=== PATIENT | female | born 1940 | race Caucasian/White ===

== ENCOUNTER 2023-07-29 21:20 | Inpatient (IN) | payer MEDICARE, SELFPAY ==
[2023-07-29 21:42] VITALS: BP 153/73; PULSE 73; RESP 16
[2023-07-29 21:47] VITALS: BMI 33.7
--- NOTE | 2023-07-29 22:15 | NURSING ---
clarification requested from Dr. Hurst by phone regarding systane eye drop discharge order from [facility], per Dr. Hurst ok to give 1 drop TID PRN per pt. preference, [facility] discharge orders also states nebulizer unknown as needed, no c/o SOB or wheeze from patient, per Dr. Hurst discontinue nebulizer order , orders read back to Dr. Hurst
[2023-07-29] MEDS: Montelukast 10 MG Tablet PO (23:42)
[2023-07-29] MEDS: Senna/Docusate Sodium 1 Tablet 2 TABLET PO (23:42)
[2023-07-29] MEDS: Cefdinir 300 MG Capsule PO (23:42)
[2023-07-29] MEDS: APIXABAN 2.5 MG TABLET (WCH) PO (23:43)
[2023-07-29] MEDS: Fluticasone/Salmeterol 232-14 Inhaler 1 PUFF INHALATION (23:43)
[2023-07-30 06:09] LABS: Absolute Lymphocyte Count 0.89 X10^3/uL (0.83-4.51); Absolute Neutrophil Count 3.8 X10^3/uL (2.0-7.7); Basophil# 0.01 X10^3/uL; Basophil% 0.2 % (0-1); Eosinophil# 0.12 X10^3/uL; Hematocrit 32.6 % (37-47); Hemoglobin 10.6 g/dL (12.0-15.0); Lymphocyte # 0.89 X10^3/ul (0.83-4.51); Mean Corp Hgb Conc 32.5 g/dL (32-36); Mean Corpuscular Hgb 26.4 pg (27.0-32.0); Mean Corpuscular Volume 81.3 fL (81-99); Mean Platelet Vol. 8.7 fl (6.2-12.0); Monocyte# 1.03 X10^3/uL; Monocyte% 17.4 % (0-10); NRBC Flagged by Analyzer 0 % (0-5); Neutrophil # 3.78 X10^3/uL (2.7-7.7); Neutrophil % 63.7 % (47-70); Platelet Count 265 K/mm3 (150-450); RBC Distribution Width CV 13.7 % (11.6-14.6); RBC Distribution Width SD 40.5 fl (35.1-43.9); Red Blood Count 4.01 M/mm3 (4.2-5.4); White Blood Count 5.9 K/mm3 (4.4-11.0)
[2023-07-30] MEDS: Levothyroxine 50 MCG Tablet PO (06:25)
[2023-07-30 06:41] LABS: Anion Gap 9 (5-15); BUN 43 mg/dL (7-18); BUN/Creat Ratio 38.7 RATIO (10-20); Calcium,Total 9.4 mg/dL (8.5-10.1); Chloride 99 mmol/L (98-107); Creatinine, Serum 1.11 mg/dL (0.55-1.02); EST Glomerular Filtration Rate 50 mL/min (>60); Est Glom Filt Rate - Afr Amer 60 mL/min (>60); Estimated Creatinine Clearance 34.96 ml/min; Glucose 113 mg/dL (74-106); Potassium 4.7 mmol/L (3.5-5.1); Sodium Level 134 mmol/L (136-145)
--- NOTE | 2023-07-30 07:39 | PCM.HP.STD ---
HPI - General General Date of Admission: 07/29/23 Date of Service: 07/30/23 Chief Complaint: Here for rehabilitation. HPI Narrative DELANO TRACEY, is a 83 Female who presents with followin07/22/2023 Admit to [facility] from [facility]. Left hip fracture, consult Ortho, consult Trauma. Gentle hydration for AJ. 07/23/2023 Dr. Jimenez performed left hip FNS screw fixation. Rocephin IV x 3 days for E. Coli UTI. Creatinine peaked at 1.37, now normal. Right great toe gout treated with prednisone 40mg daily x 5 days. Hemoglobin 10.2, no transfusion necessary. 07/29/2023 Admit to TCU with debility, here for rehabilitation, strengthening, prior to discharge home alone. [facility] Medical History (Updated 07/30/23 @ 07:[address] Ghanshyam Hurst MD) Acute kidney injury Closed left hip fracture COPD (chronic obstructive pulmonary disease) CPAP (continuous positive airway pressure) dependence Debility Fall Former smoker GERD (gastroesophageal reflux disease) Gout History of cervical cancer Hyperlipidemia Hypertension Hypothyroidism Obstructive sleep apnea Urinary tract infection Allergy/AdvReac Type Severity Reaction Status Date / Time codeine Allergy Unknown Nausea/Vom/ Verified 07/29/23 22:46 Diarrhea Surgical History (Updated 07/30/23 @ 07:[address] Ghanshyam Hurst MD) History of appendectomy History of hysterectomy S/P ORIF (open reduction internal fixation) fracture Social History (Updated 07/30/23 @ 07:[address] Ghanshyam Hurst MD) household members: none Smoking Status: Former smoker alcohol intake: never substance use type: does not use ROS Constitutional Constitutional: Denies chills, fever(s) or weight gain ENT HEENT: Denies headache(s), nasal congestion or nasal discharge Cardiovascular Cardiovascular: Denies chest pain or palpitations Respiratory/Chest Respiratory/Chest: Denies cough, excessive phlegm production or shortness of breath with exertion Gastrointestinal Gastrointestinal: Denies abdominal pain, nausea or vomiting Genitourinary Genitourinary: Denies dysuria Musculoskeletal Musculoskeletal: Denies joint pain or joint swelling Integumentary Integumentary: Denies rash or wounds Neurologic Neurologic: Denies focal weakness, numbness or tingling Psychiatric Psychiatric: Denies anxiety, auditory hallucinations, depression, homicidal ideation or suicidal ideation Vital Signs Vital Signs Vital Signs: 07/29/23 21:42 07/29/23 21:57 Pulse Rate 73 Pulse Rhythm Regular Respiratory Rate 16 Respiratory Effort Normal Non-Labored Respiratory Depth Normal Respiratory Pattern Normal Blood Pressure 153/73 H Blood Pressure Mean 99 Blood Pressure Source Monitor Blood Pressure Position Semi-Fowlers Blood Pressure Location Left Arm Oxygen Delivery Method Nasal Cannula Weight Weight: 78.494 kg Body Mass Index (BMI) 33.7 Physical Exam Const alert General Appearance: cooperative HEENT normocephalic Eyes PERRL and EOMs intact bilaterally Neck supple, no JVD and no carotid bruits Resp normal respiratory effort, normal air movement and clear to auscultation bilaterally Cardio regular rate and regular rhythm GI normal to inspection, nondistended, normoactive bowel sounds, non-tender and non-distended Extremity normal capillary refill General Extremity: Negative for edema Skin no rashes or lesions noted General Skin Exam: no breakdown Psych affect normal Appearance: appropriate Results Lab / Micro Data 07/30/23 05:45 07/30/23 05:45 Labs: Laboratory Results - last 24 hr 07/30/23 05:45: WBC 5.9, RBC 4.01 L, Hgb 10.6 L, Hct 32.6 L, MCV 81.3, MCH 26.4 L, MCHC 32.5, RDW Std Deviation 40.5, RDW Coeff of Susan 13.7, Plt Count 265, MPV 8.7, Immature Gran % (Auto) 1.700 H, Neut % (Auto) 63.7, Lymph % (Auto) 15.0 L, Beauregard % (Auto) 17.4 H, Eos % (Auto) 2.0, Baso % (Auto) 0.2, Absolute Neuts (auto) 3.8, Absolute Lymphs (auto) 0.89, Nucleated RBC % 0, Sodium 134 L, Potassium 4.7, Chloride 99, Carbon Dioxide 26.0, Anion Gap 9, BUN 43 H, Creatinine 1.11 H, Estim Creat Clear Calc 34.96, Est GFR (MDRD) Af Amer 60, Est GFR (MDRD) Non-Af 50 L, BUN/Creatinine Ratio 38.7 H, Glucose 113 H, Calcium 9.4 Assessment & Plan Assessment/Plan (1) Debility: (2) Fall: (3) Closed left hip fracture: (4) Gout: (5) Urinary tract infection: (6) Acute kidney injury: (7) Hypertension: (8) GERD (gastroesophageal reflux disease): (9) Hypothyroidism: (10) Hyperlipidemia: (11) Obstructive sleep apnea: (12) History of cervical cancer: (13) COPD (chronic obstructive pulmonary disease): PLAN: Plan 83 year old female with below past medical history hospitalized for left hip fracture, underwent left hip FNS screw fixation 07/23/2023, postoperative course complicated by AJ, UTI, Gout, admitted to TCU with debility, here for rehabilitation, strengthening, prior to discharge home alone. Debility - PT/OT. Pain - Tylenol 1000mg q8, Oxycodone 5mg q4 prn pain (6-10). Bowel - Miralax 17gm daily, senna/colace 2 tablets bid, Dulcolax 10mg daily prn. Adult immunization - Administer pneumonia vaccine, covid vaccine, flu vaccine as appropriate. DVT prophylaxis - Eliquis 2.5mg bid thru 08/27/2023. Osteoporosis - Alendronate 70mg qweek. Hypertension - Metoprolol succinate 50mg daily, Lisinopril 20mg daily, Amlodipine 10mg daily. E. Coli UTI - Cefdinir 300mg q12 thru 08/02/2023. Vitamin D deficiency - D3 125mcg daily. COPD - Fluticasone/salmeterol 232-14 1 puff q12, Incruse 1 puff daily. Hypothyroidism - Levothyroxine 50mcg daily. Allergic rhinitis - Montelukast 10mg daily. Overactive bladder - Oxybutynin 5mg daily. GERD - Pantoprazole 40mg daily. Dry eyes - Artificial tears 1gtt tid prn. Hyperlipidemia - Pravastatin 20mg qhs.
[2023-07-30 08:57] VITALS: BP 136/72; PULSE 75
[2023-07-30] MEDS: Metoprolol(XL)Succ 50 MG Tablet PO (08:57)
[2023-07-30] MEDS: Pantoprazole Sodium 40 MG Tablet PO (08:58)
[2023-07-30] MEDS: Senna/Docusate Sodium 1 Tablet 2 TABLET PO ×2 (08:58→22:03)
[2023-07-30] MEDS: Oxybutynin 5 MG Tablet PO (08:58)
[2023-07-30] MEDS: amLODIPine 10 MG Tablet PO (08:58)
[2023-07-30] MEDS: Cholecalciferol (Vit D3) 125 MCG CAPSULE (5,000 UNITS) PO (08:58)
[2023-07-30] MEDS: Cefdinir 300 MG Capsule PO ×2 (08:58→22:04)
[2023-07-30] MEDS: Lisinopril 20 MG Tablet PO (08:58)
[2023-07-30] MEDS: Umeclidinium Bromide Inhaler 1 PUFF INHALATION (08:59)
[2023-07-30] MEDS: APIXABAN 2.5 MG TABLET (WCH) PO ×2 (08:59→22:03)
[2023-07-30] MEDS: Fluticasone/Salmeterol 232-14 Inhaler 1 PUFF INHALATION ×2 (08:59→22:03)
[2023-07-30] MEDS: oxyCODONE 5 MG Tablet PO (09:03)
[2023-07-30] MEDS: Tuberculin,Purif.prot.deriv. 50 TU/ML Vial 0.1 ML ID (09:35)
--- NOTE | 2023-07-30 13:43 | PCM.PN.DRR ---
Documented by User: Rui Mcdonough 07/30/23 14:10 TCU RX Drug Regimen Review Subjective/Objective Subjective/Objective: Subjective: TCU admission note. 83 year old female with below past medical history hospitalized for left hip fracture, underwent left hip FNS screw fixation 07/23/2023, postoperative course complicated by AJ, UTI, Gout, admitted to TCU with debility, here for rehabilitation, strengthening, prior to discharge home alone. Objective: Allergies codeine Allergy (Unknown, Verified 07/29/23 22:46) Nausea/Vom/Diarrhea Current Medications Generic Name Dose Route Start Last Admin Trade Name Freq PRN Reason Stop Dose Admin Acetaminophen 1,000 mg 07/30/23 14:00 Acetaminophen 500 Mg Tablet PO Q8 TONI Alendronate Sodium 70 mg 08/04/23 07:00 Alendronate Sodium 70 Mg Tablet PO Q7D@0700 TONI Amlodipine Besylate 10 mg 07/30/23 10:00 07/30/23 08:58 Amlodipine 10 Mg Tablet PO 10 mg DAILY TONI Administration Protocol Apixaban 2.5 mg 07/29/23 22:00 07/30/23 08:59 Apixaban 2.5 Mg Tablet ([facility]) PO 08/27/23 23:59 2.5 mg BID TONI Administration Bisacodyl 10 mg 07/29/23 21:33 Bisacodyl 5 Mg Tablet PO DAILY PRN PRN Constipation Cefdinir 300 mg 07/29/23 22:00 07/30/23 08:58 Cefdinir 300 Mg Capsule PO 08/02/23 22:01 300 mg Q12 TONI Administration Cholecalciferol 125 mcg 07/30/23 10:00 07/30/23 08:58 Cholecalciferol (Vit D3) 125 Mcg Capsule (5,000 Units) PO 125 mcg DAILY TONI Administration Glycerin/Hypromellose/Polyethylene 1 drp 07/29/23 23:24 Glycerin/Hypromellose/[id number] 15 Ml Bottle EACH EYE TID PRN PRN eye dryness Sodium Chloride 250 mls @ 15 mls/hr 07/29/23 21:30 IV .[id number] PRN Additional IVPB Infusion Sodium Chloride 250 mls @ 15 mls/hr 07/29/23 21:30 IV .[id number] PRN Saline Flush Levothyroxine Sodium 50 mcg 07/30/23 06:00 07/30/23 06:25 Levothyroxine 50 Mcg Tablet PO 50 mcg DAILY@0600 TONI Administration Lisinopril 20 mg 07/30/23 10:00 07/30/23 08:58 Lisinopril 20 Mg Tablet PO 20 mg DAILY TONI Administration Metoprolol Succinate 50 mg 07/30/23 10:00 07/30/23 08:57 Metoprolol(Xl)Succ 50 Mg Tablet PO 50 mg DAILY TONI Administration Protocol Montelukast Sodium 10 mg 07/29/23 22:00 07/29/23 23:42 Montelukast 10 Mg Tablet PO 10 mg HS TONI Administration Nutritional Formula (Lactose Free) 120 ml 07/30/23 17:45 Ensure Plus High Protein 120 Ml Liquid PO TIDCM [facility] Oxybutynin Chloride 5 mg 07/30/23 10:00 07/30/23 08:58 Oxybutynin 5 Mg Tablet PO 5 mg DAILY TONI Administration Oxycodone HCl 5 mg 07/30/23 07:51 07/30/23 09:03 Oxycodone 5 Mg Tablet PO 08/01/23 21:47 5 mg Q4H PRN PRN Administration Pain Score 6-10 Pantoprazole Sodium 40 mg 07/30/23 10:00 07/30/23 08:58 Pantoprazole Sodium 40 Mg Tablet PO 40 mg DAILY TONI Administration Polyethylene Glycol 17 gm 07/30/23 10:00 07/30/23 08:59 Polyethylene Glycol 3350 17 Gm Packet PO 08/14/23 10:01 Not Given DAILY [facility] Pravastatin Sodium 20 mg 07/30/23 22:00 Pravastatin 20 Mg Tablet PO QHS TONI Fluticasone/Salmeterol 1 puff 07/29/23 22:00 07/30/23 08:59 Fluticasone/Salmeterol 232-14 Inhaler INHALATION 1 puff Q12 TONI Administration Senna/Docusate Sodium 2 tablet 07/29/23 22:00 07/30/23 08:58 Senna/Docusate Sodium 1 Tablet PO 2 tablet BID TONI Administration Sodium Chloride 10 - 40 ml 07/29/23 21:30 0.9% Saline Lock 10 Ml Syringe IV UD PRN SALINE FLUSH Tuberculin PPD 0.1 ml 08/06/23 10:00 Tuberculin,Purif.Prot.Deriv. 50 Tu/Ml Vial ID 08/06/23 10:01 X1 ONE Umeclidinium [place] 1 puff 07/30/23 10:00 07/30/23 08:59 Umeclidinium [place] Inhaler INHALATION 1 puff DAILY TONI Administration Problem List (Updated 07/30/23 @ 07:[address] Ghanshyam Hurst MD) COPD (chronic obstructive pulmonary disease) (Chronic) History of cervical cancer (Acute) Obstructive sleep apnea (Acute) Hyperlipidemia (Acute) Hypothyroidism (Acute) GERD (gastroesophageal reflux disease) (Acute) Hypertension (Chronic) Acute kidney injury (Acute) Urinary tract infection (Acute) Gout (Acute) Closed left hip fracture (Acute) Fall (Acute) Debility (Acute) Vital Signs Pulse Resp BP O2 Del Method O2 Flow Rate 75 16 136/72 H Nasal Cannula 2 07/30/23 08:57 07/29/23 21:42 07/30/23 08:57 07/29/23 21:57 07/30/23 10:39 Oxygen Flow Rate (L/min) 2 Oxygen Delivery Method Nasal Cannula Weight: 78.494 kg Body Mass Index (BMI) 33.7 Sodium 134 mmol/L (136-145) L 07/30/23 05:45 Potassium 4.7 mmol/L (3.5-5.1) 07/30/23 05:45 Chloride 99 mmol/L (98-107) 07/30/23 05:45 Carbon Dioxide 26.0 mmol/L (21.0-32.0) 07/30/23 05:45 Anion Gap 9 (5-15) 07/30/23 05:45 BUN 43 mg/dL (7-18) H 07/30/23 05:45 Creatinine 1.11 mg/dL (0.55-1.02) H 07/30/23 05:45 Est GFR (MDRD) Af Amer 60 mL/min (>60) 07/30/23 05:45 Est GFR (MDRD) Non-Af 50 mL/min (>60) L 07/30/23 05:45 BUN/Creatinine Ratio 38.7 RATIO (10-20) H 07/30/23 05:45 Glucose 113 mg/dL (74-106) H 07/30/23 05:45 Assessment/Plan: 1. Pain: acetaminophen 1000 mg PO Q8H, oxycodone 5 mg PO Q4H PRN pain (6-10). The patient has required 1 dose of PRN oxycodone so far this admission. Please continue to monitor pain levels, LFTs (no recent LFTs documented), for respiratory depression, constipation, dizziness/drowsiness and syncope/ataxia/falls. 2. Bowel: Polyethylene glycol 17 grams PO daily, senna/docusate 2 tablets PO BID, bisacodyl 10 mg PO daily PRN constipation. The patient has not required any PRN doses of bisacodyl so far this admission and the patient does not have a documented bowel movement yet this admission. Please continue to monitor for PRN medication usage, bowel movements, constipation and diarrhea. 3. DVT prophylaxis: apixaban 2.5 mg PO BID through 08/27/23. Please continue to monitor for s/s of DVT such as pain/erythema/edema in an extremity, for s/s of bleeding/excessive bruising, hemoglobin levels (Hgb = 10.6 g/dL on 07/30/23), and platelet count (Plt = 265 K/mm3 on 07/30/23). 4. UTI: cefdinir 300 mg PO BID through 08/02/23. Please continue to monitor for s/s of UTI such as dysuria, urgency, frequency, fevers (no recent temps documented), white blood cell count (WBC = 5.9 K/mm3 on 07/30/23), renal function (serum creatinine = 1.11 mg/dL with creatinine clearance ~ 35 mL/min on 07/30/23), and for GI distress and diarrhea. 5. Hypertension: amlodipine 10 mg PO daily, lisinopril 20 mg PO daily, metoprolol succinate 50 mg PO daily. Please continue to monitor blood pressures (recent range = 136-153/72-73 mmHg), for lower extremity edema, potassium levels (K = 4.7 mmol/L on 07/30/23), sodium levels (Na = 134 mmol/L on 07/30/23), renal function (serum creatinine = 1.11 mg/dL with creatinine clearance ~ 35 mL/min on 07/30/23), heart rates (recent range = 73-75 beats/min), for angioedema, cough, and fatigue. The patient's blood pressures have been elevated so far this admission, please consider increasing lisinopril to 30 mg PO daily if patient's blood pressures remain elevated. 6. Osteoporosis: alendronate 70 mg PO every week. Please continue to monitor for s/s of osteoporosis such as fractures, calcium levels (Ca = 9.4 mg/dL on 07/30/23), for jaw pain, and for GI distress with alendronate administration. 7. COPD: fluticasone/salmeterol 232-14 1 puff BID, umeclidinium 1 puff daily. Please continue to monitor for s/s of COPD exacerbation such as cough and increased sputum production, for shortness of breath, for oral thrush, palpitations, dry mouth, dry eyes, urinary retention and constipation. Please ensure the patient's mouth is rinsed with water after each administration of fluticasone/salmeterol to help avoid oral thrush. 8. Hypothyroidism: levothyroxine 50 mcg PO daily. Please continue to monitor for s/s of hypo/hyperthyroidism, and for thyroid hormone levels (no recent thyroid hormone levels documented). Please consider ordering thyroid hormone levels to assess patient's thyroid repletion status if clinically indicated. 9. GERD: pantoprazole 40 mg PO daily. Please continue to monitor for s/s of GERD, for diarrhea that could indicate clostridium difficile infection, and for s/s of bone resorption issues such as fractures. As the patient has a diagnosis of osteoporosis, it may be reasonable to assess the patient's history of GERD, and attempt to de-escalate GERD treatment to either a PRN H2RA such as famotidine/tums or to stop treatment entirely and assess for necessity of pantoprazole depending on patient's previous history and trials with other medications. 10: Hyperlipidemia: pravastatin 20 mg PO QHS. Please continue to monitor lipid levels (no recent lipid levels documented), and for myalgias. Please consider ordering lipid levels to assess patient's lipid status if clinically indicated. 11. Overactive bladder: oxybutynin 5 mg PO daily. Please continue to monitor for bladder spasms, drowsiness, blurred vision, constipation, delirium, dry mouth and dry eyes. 12. Allergic rhinitis: montelukast 10 mg PO daily. Please continue to monitor allergy symptoms, and for agitation. 13. Vitamin D deficiency: cholecalciferol 125 mcg PO daily. Please continue to monitor for s/s of vitamin D deficiency as well as vitamin D levels (no recent vitamin D levels documented). Please consider ordering vitamin D levels to assess vitamin D deficiency if clinically indicated. 14. Dry eyes: artificial tears 1 drop in each eye TID PRN dry eyes. The patient has not required any PRN artificial tears so far this admission. Please continue to monitor for dry eyes and PRN medication usage. Assessment/Plan for indications treated with psychotropic medications: NA Medical chart and medication regimen reviewed. The following medication irregularities or issues were identified: 1. Hypertension: amlodipine 10 mg PO daily, lisinopril 20 mg PO daily, metoprolol succinate 50 mg PO daily. The patient's blood pressures have been elevated so far this admission, please consider increasing lisinopril to 30 mg PO daily if patient's blood pressures remain elevated. 2. Hypothyroidism: levothyroxine 50 mcg PO daily. Please consider ordering thyroid hormone levels to assess patient's thyroid repletion status if clinically indicated. 3. GERD: pantoprazole 40 mg PO daily. As the patient has a diagnosis of osteoporosis which pantoprazole may contribute to the worsening of, it may be reasonable to assess the patient's history of GERD, and attempt to de-escalate GERD treatment to either a PRN H2RA such as famotidine/tums or to stop treatment entirely and assess for necessity of pantoprazole depending on patient's previous history and trials with other medications. 4: Hyperlipidemia: pravastatin 20 mg PO QHS. Please consider ordering lipid levels to assess patient's lipid status if clinically indicated. 5. Vitamin D deficiency: cholecalciferol 125 mcg PO daily. Please consider ordering vitamin D levels to assess vitamin D deficiency if clinically indicated. Date Date of Note:: 07/30/23 Documented by User: Dr. Ghanshyam Hurst MD 07/30/23 14:36 TCU RX Drug Regimen Review Provider Comments Provider responsibility Provider Comments to Recommendations by Pharmacy: Agree
--- NOTE | 2023-07-30 13:46 | NURSING ---
Block Stacker Note; Activity Asset: Sheldon Bales is independent in her choice of daily activities with reminders at this time. She is oriented x3 just give her time go get out what she would like to say. She watches tv, reads and visits with the therapist respiratory and therapy dog when available. Staff will remind her of weekly activities and respect her right to say no.
--- NOTE | 2023-07-30 14:21 | CASEMGMT ---
Addendum entered by Brittany Ellis 07/30/23 14:49: Social Work Pt's C-Pap is from [employer]. Pt is not usually on O2 and is on O2 at this time. BARBRA Gleason Original Note: Social Work SW met w/pt and daughter Margarita in room, introduced self and role of SW in TCU. SW asked about LW/POA, daughter Mckenzie is healthcare POA and will bring in the documents. SW confirmed w/pt is a full code. SW explained pt is approved for TCU with insurance, next review date is 08/02/23, and there is no guarantee they will cover additional time. SW also educated daughter and pt to plan of care meeting next week, they will be contacted regarding the time. Daughter asked exactly when the meeting will be, SW left a message for Cassandra to let pt and family know. Pt's discharge plan is to return home, she is open to home health and other home delivery options besides Meals on Wheels. Pt does take a long time to get her words out, as per pt and daughter this started happening a year ago and they do not know why. She is to follow up w/a neurologist, the appt is for next week. SW will continue to follow for d/c planning needs. BARBRA Gleason
[2023-07-30] MEDS: Acetaminophen 500 MG Tablet 1000 MG PO ×2 (14:35→22:03)
--- NOTE | 2023-07-30 14:55 | CHAPLAIN ---
Type of Pastoral Visit _x__ Initial Visit ___ Follow-up Visit ___ On-call Visit ___ General Patient Visit ___ Spiritual Assessment ___ Family Conference ___ Bereavement ___ Rapid Response ___ Code Blue ___ Other (describe below) Pastoral Care Referral From _x__ Patient ___ Family ___ Nurse ___ Physician ___ Director Investment Banking ___ Die Repairer Trimmer Dies ___ Other (describe below) Sacrament/Intervention _x__ Active listening ___ Anointing ___ Yarsani ___ Bereavement ___ Communion ___ Tita exploration ___ _x__ Life review _x__ Prayer ___ Reconciliation ___ Sacrament of Sick ___ Supportive presence ___ Wedding ___ Other (describe below) Pastoral Comments patient and her daughter are in the room; daughter is visiting and is also welcoming; pt gives some answers to the questions given but is quite slow in getting words out; daughter fills in the details and gives explanations; pt states that she is connected to a bahai and expects the exhibit display representative to visit also; pt is welcoming and invites a prayer for her support;
[2023-07-30 15:25] VITALS: BP 134/62; PULSE 75; RESP 16; TEMP 36.2; O2SAT 96
[2023-07-30] MEDS: Ensure Plus High Protein 120 ML LIQUID PO (18:01)
[2023-07-30] MEDS: Pravastatin 20 MG Tablet PO (22:04)
[2023-07-30] MEDS: Montelukast 10 MG Tablet PO (22:04)
[2023-07-30 23:00] VITALS: PULSE 64; RESP 16; O2SAT 95
[2023-07-31] MEDS: Levothyroxine 50 MCG Tablet PO (06:28)
[2023-07-31] MEDS: Acetaminophen 500 MG Tablet 1000 MG PO ×3 (06:28→22:51)
[2023-07-31 08:59] LABS: Vitamin D,25 Hydroxy 36.5 ng/mL
[2023-07-31 09:02] LABS: Cholesterol 137 mg/dL (200); High Density Lipoprotein 46 mg/dL; Triglycerides 134 mg/dL; Very Low Density Lipoprotein 27 mg/dL (5-40)
[2023-07-31 09:03] VITALS: BP 129/49; PULSE 85
[2023-07-31] MEDS: Cefdinir 300 MG Capsule PO ×2 (09:03→22:52)
[2023-07-31] MEDS: Pantoprazole Sodium 40 MG Tablet PO (09:03)
[2023-07-31] MEDS: Oxybutynin 5 MG Tablet PO (09:03)
[2023-07-31] MEDS: Senna/Docusate Sodium 1 Tablet 2 TABLET PO (09:03)
[2023-07-31] MEDS: Lisinopril 20 MG Tablet PO (09:03)
[2023-07-31] MEDS: Umeclidinium Bromide Inhaler 1 PUFF INHALATION (09:03)
[2023-07-31] MEDS: Metoprolol(XL)Succ 50 MG Tablet PO (09:03)
[2023-07-31] MEDS: APIXABAN 2.5 MG TABLET (WCH) PO ×2 (09:03→22:52)
[2023-07-31] MEDS: Cholecalciferol (Vit D3) 125 MCG CAPSULE (5,000 UNITS) PO (09:03)
[2023-07-31] MEDS: Fluticasone/Salmeterol 232-14 Inhaler 1 PUFF INHALATION ×2 (09:03→22:53)
[2023-07-31] MEDS: amLODIPine 10 MG Tablet PO (09:03)
[2023-07-31] MEDS: Ensure Plus High Protein 120 ML LIQUID PO ×2 (09:05→17:38)
[2023-07-31 15:38] VITALS: BP 105/45; PULSE 74; RESP 16; TEMP 36.1; O2SAT 96
[2023-07-31] MEDS: Pravastatin 20 MG Tablet PO (22:52)
[2023-07-31] MEDS: Montelukast 10 MG Tablet PO (22:53)
[2023-08-01 04:31] VITALS: O2SAT 96
[2023-08-01] MEDS: Levothyroxine 50 MCG Tablet PO (04:59)
[2023-08-01] MEDS: oxyCODONE 5 MG Tablet PO ×2 (04:59→23:16)
[2023-08-01] MEDS: Acetaminophen 500 MG Tablet 1000 MG PO ×3 (04:59→22:20)
[2023-08-01] MEDS: Umeclidinium Bromide Inhaler 1 PUFF INHALATION (10:25)
[2023-08-01] MEDS: Ensure Plus High Protein 120 ML LIQUID PO ×3 (10:25→17:11)
[2023-08-01] MEDS: Fluticasone/Salmeterol 232-14 Inhaler 1 PUFF INHALATION ×2 (10:25→22:19)
[2023-08-01 10:27] VITALS: BP 126/68; PULSE 76
[2023-08-01] MEDS: Pantoprazole Sodium 40 MG Tablet PO (10:27)
[2023-08-01] MEDS: Metoprolol(XL)Succ 50 MG Tablet PO (10:27)
[2023-08-01] MEDS: Lisinopril 20 MG Tablet PO (10:27)
[2023-08-01] MEDS: Cholecalciferol (Vit D3) 125 MCG CAPSULE (5,000 UNITS) PO (10:27)
[2023-08-01] MEDS: Cefdinir 300 MG Capsule PO ×2 (10:28→22:16)
[2023-08-01] MEDS: Senna/Docusate Sodium 1 Tablet 2 TABLET PO ×2 (10:28→22:16)
[2023-08-01] MEDS: APIXABAN 2.5 MG TABLET (WCH) PO ×2 (10:28→22:15)
[2023-08-01] MEDS: amLODIPine 10 MG Tablet PO (10:28)
[2023-08-01] MEDS: Oxybutynin 5 MG Tablet PO (10:29)
[2023-08-01 11:22] VITALS: O2SAT 96
[2023-08-01 15:48] VITALS: BP 108/47; PULSE 77; RESP 16; TEMP 36.4; O2SAT 98
[2023-08-01] MEDS: Montelukast 10 MG Tablet PO (22:19)
[2023-08-01] MEDS: Pravastatin 20 MG Tablet PO (22:19)
[2023-08-02] MEDS: oxyCODONE 5 MG Tablet PO (03:21)
[2023-08-02] MEDS: Acetaminophen 500 MG Tablet 1000 MG PO ×3 (06:38→20:31)
[2023-08-02] MEDS: Levothyroxine 50 MCG Tablet PO (06:38)
[2023-08-02 07:02] VITALS: O2SAT 97
[2023-08-02] MEDS: Oxybutynin 5 MG Tablet PO (09:37)
[2023-08-02] MEDS: Fluticasone/Salmeterol 232-14 Inhaler 1 PUFF INHALATION ×2 (09:38→20:30)
[2023-08-02] MEDS: amLODIPine 10 MG Tablet PO (09:38)
[2023-08-02 09:39] VITALS: BP 120/58; PULSE 92
[2023-08-02] MEDS: Metoprolol(XL)Succ 50 MG Tablet PO (09:39)
[2023-08-02] MEDS: Cefdinir 300 MG Capsule PO ×2 (09:39→20:32)
[2023-08-02] MEDS: Pantoprazole Sodium 40 MG Tablet PO (09:39)
[2023-08-02] MEDS: Senna/Docusate Sodium 1 Tablet 2 TABLET PO ×2 (09:39→20:31)
[2023-08-02] MEDS: Cholecalciferol (Vit D3) 125 MCG CAPSULE (5,000 UNITS) PO (09:40)
[2023-08-02] MEDS: Umeclidinium Bromide Inhaler 1 PUFF INHALATION (09:40)
[2023-08-02] MEDS: Lisinopril 20 MG Tablet PO (09:40)
[2023-08-02] MEDS: Ensure Plus High Protein 120 ML LIQUID PO ×3 (09:58→17:20)
[2023-08-02] MEDS: APIXABAN 2.5 MG TABLET (WCH) PO ×2 (11:06→20:31)
--- NOTE | 2023-08-02 11:52 | NURSING ---
Addendum entered by Karis Alejo 08/02/23 17:24: Dr. Jimenez office call back and say patient will need to follow up 6 weeks post op. Patient made aware. Original Note: Spoke with nurse An at Dr. López office and she gives order to remove matthew on 08/09/23 and that dressing to left hip will also come off at this time. Patient to receive x-ray to left hip same day as staple removal and images pushed through to teleimaging. [facility] x-ray confirm images will be able to be pushed through. Daughter to be made aware of orders.
--- NOTE | 2023-08-02 13:12 | NURSING ---
Offered Covid vaccine, VIS provided. Patient refused at this time.
--- NOTE | 2023-08-02 13:56 | NURSING ---
SPO2 98% ON 1L per NC this AM at 0900. Removed o2 and spo2 96% after a few minutes. Patient walked to bathroom one hour later and o2 remained at 98% on RA. Oxygen remains off at this time.
[2023-08-02 14:55] VITALS: BP 120/50; PULSE 78; RESP 18; TEMP 36.3; O2SAT 96
[2023-08-02 20:25] VITALS: RESP 17; O2SAT 96
[2023-08-02] MEDS: Pravastatin 20 MG Tablet PO (20:31)
[2023-08-02] MEDS: Montelukast 10 MG Tablet PO (20:31)
[2023-08-03] MEDS: oxyCODONE 5 MG Tablet PO ×3 (02:15→21:30)
[2023-08-03] MEDS: Levothyroxine 50 MCG Tablet PO (05:32)
[2023-08-03] MEDS: Acetaminophen 500 MG Tablet 1000 MG PO ×3 (05:32→21:31)
[2023-08-03 07:46] VITALS: O2SAT 95
[2023-08-03 09:06] VITALS: BP 122/54; PULSE 84; RESP 16; TEMP 36.3; O2SAT 95
--- NOTE | 2023-08-03 10:02 | NURSING ---
He[facility]ly for Dr Andre Pena, to clarify removal of matthew and if he would like an X-ray completed. Waiting for return call.
[2023-08-03] MEDS: Ensure Plus High Protein 120 ML LIQUID PO ×3 (10:16→17:16)
[2023-08-03] MEDS: Oxybutynin 5 MG Tablet PO (10:17)
[2023-08-03] MEDS: APIXABAN 2.5 MG TABLET (WCH) PO ×2 (10:17→21:31)
[2023-08-03] MEDS: Fluticasone/Salmeterol 232-14 Inhaler 1 PUFF INHALATION ×2 (10:18→21:30)
[2023-08-03] MEDS: Umeclidinium Bromide Inhaler 1 PUFF INHALATION (10:19)
[2023-08-03] MEDS: Pantoprazole Sodium 40 MG Tablet PO (10:21)
[2023-08-03] MEDS: amLODIPine 10 MG Tablet PO (10:21)
[2023-08-03 10:22] VITALS: BP 122/54; PULSE 84
[2023-08-03] MEDS: Senna/Docusate Sodium 1 Tablet 2 TABLET PO ×2 (10:22→21:32)
[2023-08-03] MEDS: Metoprolol(XL)Succ 50 MG Tablet PO (10:22)
[2023-08-03] MEDS: Cholecalciferol (Vit D3) 125 MCG CAPSULE (5,000 UNITS) PO (10:23)
[2023-08-03] MEDS: Lisinopril 20 MG Tablet PO (10:23)
[2023-08-03 15:26] VITALS: BMI 33.8
[2023-08-03] MEDS: Pravastatin 20 MG Tablet PO (21:32)
[2023-08-03] MEDS: Montelukast 10 MG Tablet PO (21:32)
[2023-08-04] MEDS: Alendronate Sodium 70 MG Tablet PO (06:10)
[2023-08-04] MEDS: oxyCODONE 5 MG Tablet PO ×2 (06:10→20:56)
[2023-08-04] MEDS: Levothyroxine 50 MCG Tablet PO (06:11)
[2023-08-04] MEDS: Acetaminophen 500 MG Tablet 1000 MG PO ×3 (06:11→20:58)
[2023-08-04 08:55] VITALS: O2SAT 94
[2023-08-04] MEDS: Ensure Plus High Protein 120 ML LIQUID PO ×3 (09:08→17:44)
[2023-08-04] MEDS: APIXABAN 2.5 MG TABLET (WCH) PO ×2 (09:09→20:58)
[2023-08-04] MEDS: Oxybutynin 5 MG Tablet PO (09:09)
[2023-08-04] MEDS: Umeclidinium Bromide Inhaler 1 PUFF INHALATION (09:10)
[2023-08-04] MEDS: Fluticasone/Salmeterol 232-14 Inhaler 1 PUFF INHALATION ×2 (09:10→20:58)
[2023-08-04] MEDS: amLODIPine 10 MG Tablet PO (09:11)
[2023-08-04 09:12] VITALS: BP 139/62; PULSE 80
[2023-08-04] MEDS: Metoprolol(XL)Succ 50 MG Tablet PO (09:12)
[2023-08-04] MEDS: Senna/Docusate Sodium 1 Tablet 2 TABLET PO ×2 (09:12→20:59)
[2023-08-04] MEDS: Pantoprazole Sodium 40 MG Tablet PO (09:12)
[2023-08-04] MEDS: Lisinopril 20 MG Tablet PO (09:13)
[2023-08-04] MEDS: Cholecalciferol (Vit D3) 125 MCG CAPSULE (5,000 UNITS) PO (09:13)
[2023-08-04 09:26] VITALS: BP 139/62; PULSE 80; RESP 16; TEMP 36.3; O2SAT 95
--- NOTE | 2023-08-04 12:15 | CASEMGMT ---
Social Work Collaboration with DIGITAL PHOTOGRAPHER on presenting social work information for care plan meeting. Information included explanation of [employer] insurance with NRD 08/09, EDC 08/12, continued stay is not guaranteed with each review. Broached topic of pt needing alternative DC plan, specifically at a SNF. Explained patient liability at a SNF. Family reported pt will need Medicaid to transfer to a SNF. This worker's business card provided to pt/family if further questions arise. SW will follow up with DC plans. JOHN PAUL MotaW
--- NOTE | 2023-08-04 15:55 | CHAPLAIN ---
Type of Pastoral Visit ___ Initial Visit _x__ Follow-up Visit ___ On-call Visit ___ General Patient Visit ___ Spiritual Assessment ___ Family Conference ___ Bereavement ___ Rapid Response ___ Code Blue ___ Other (describe below) Pastoral Care Referral From _x__ Patient ___ Family ___ Nurse ___ Physician ___ Defence [employer] Member Other Ranks ___ Freight Brakeman ___ Other (describe below) Sacrament/Intervention _x__ Active listening ___ Anointing ___ Sabianist ___ Bereavement ___ Communion _x__ Tita exploration ___ _x__ Life review _x__ Prayer ___ Reconciliation ___ Sacrament of Sick ___ Supportive presence ___ Wedding ___ Other (describe below) Pastoral Comments follow up visit today after a brief initial visit last week; pt is alone and able to talk directly about her life and situation; pt presents with a smile and positive outlook; pt speaks of having all she needs because she has five daughters that are very attentive; patient has family support from others too; pt speaks of her tita and 'finding it again' through a granddaughter; pt shares of her tita perspective; pt gives some life review; pt states she does not worry about anything; prayer is welcomed
[2023-08-04] MEDS: Montelukast 10 MG Tablet PO (20:58)
[2023-08-04] MEDS: Pravastatin 20 MG Tablet PO (20:59)
[2023-08-04 23:00] VITALS: PULSE 83; RESP 16; O2SAT 93
[2023-08-05] MEDS: Acetaminophen 500 MG Tablet 1000 MG PO ×3 (05:24→22:46)
[2023-08-05] MEDS: Levothyroxine 50 MCG Tablet PO (05:24)
[2023-08-05 08:12] VITALS: O2SAT 93
--- NOTE | 2023-08-05 08:37 | NURSING ---
Air Bag Buffer Note; MDS for 08/05/2023 Complete
[2023-08-05 08:52] VITALS: BP 129/43; PULSE 81; RESP 18; O2SAT 98
[2023-08-05] MEDS: amLODIPine 10 MG Tablet PO (08:54)
[2023-08-05] MEDS: Ensure Plus High Protein 120 ML LIQUID PO ×2 (08:54→18:11)
[2023-08-05] MEDS: Lisinopril 20 MG Tablet PO (08:54)
[2023-08-05] MEDS: APIXABAN 2.5 MG TABLET (WCH) PO ×2 (08:54→22:45)
[2023-08-05] MEDS: Oxybutynin 5 MG Tablet PO (08:54)
[2023-08-05] MEDS: Senna/Docusate Sodium 1 Tablet 2 TABLET PO ×2 (08:54→22:46)
[2023-08-05 08:55] VITALS: PULSE 81
[2023-08-05] MEDS: Fluticasone/Salmeterol 232-14 Inhaler 1 PUFF INHALATION ×2 (08:55→22:46)
[2023-08-05] MEDS: Pantoprazole Sodium 40 MG Tablet PO (08:55)
[2023-08-05] MEDS: Cholecalciferol (Vit D3) 125 MCG CAPSULE (5,000 UNITS) PO (08:55)
[2023-08-05] MEDS: Umeclidinium Bromide Inhaler 1 PUFF INHALATION (08:55)
[2023-08-05] MEDS: Metoprolol(XL)Succ 50 MG Tablet PO (08:55)
[2023-08-05] MEDS: oxyCODONE 5 MG Tablet PO ×2 (09:06→22:45)
--- NOTE | 2023-08-05 11:20 | CASEMGMT ---
Social Work BIMS () and PHQ-2 () completed for MDS assessment. Angela Chan MSW REGISTERED CLIENT ASSOCIATE
--- NOTE | 2023-08-05 11:45 | NURSING ---
Addendum entered by Mihaela Huber 08/05/23 15:46: Pt returns to unit ~1500 with daughter after appointment with Phi Betancur MD. New orders received for carbidopa-levidopa 25-100mg tablets daily. 6wk follow-up appointment with ELAINA Orellana scheduled for 09/16/23 @1430. Pt and family aware of new orders; no comments/concerns at this time. RN notified. Will update Dr. Hurst on new orders. Original Note: Pt leaves unit ~1140 for appointment in [place] with [facility] neurologist. Denies pain. Daughter transporting.
[2023-08-05 16:00] VITALS: TEMP 36.1
[2023-08-05 22:45] VITALS: PULSE 88; RESP 18; O2SAT 96
[2023-08-05] MEDS: Montelukast 10 MG Tablet PO (22:46)
[2023-08-05] MEDS: Pravastatin 20 MG Tablet PO (22:46)
[2023-08-06] MEDS: oxyCODONE 5 MG Tablet PO ×2 (05:19→23:08)
[2023-08-06] MEDS: Levothyroxine 50 MCG Tablet PO (05:19)
[2023-08-06] MEDS: Acetaminophen 500 MG Tablet 1000 MG PO ×3 (05:19→22:31)
[2023-08-06 05:20] VITALS: PULSE 78; RESP 16; O2SAT 95
[2023-08-06 05:36] LABS: Absolute Neutrophil Count 2.3 X10^3/uL (2.0-7.7); Basophil# 0.04 X10^3/uL; Basophil% 1.1 % (0-1); Eosinophil# 0.09 X10^3/uL; Eosinophils% 2.5 % (0-5); Hematocrit 30.4 % (37-47); Mean Corp Hgb Conc 32.9 g/dL (32-36); Mean Corpuscular Hgb 26.9 pg (27.0-32.0); Mean Corpuscular Volume 81.7 fL (81-99); Mean Platelet Vol. 9.3 fl (6.2-12.0); Monocyte% 16.8 % (0-10); NRBC Flagged by Analyzer 0 % (0-5); Neutrophil # 2.33 X10^3/uL (2.7-7.7); POSITIVE DIFFERENTIAL YES; Platelet Count 287 K/mm3 (150-450); RBC Distribution Width CV 14.2 % (11.6-14.6); RBC Distribution Width SD 41.3 fl (35.1-43.9); Red Blood Count 3.72 M/mm3 (4.2-5.4); White Blood Count 3.6 K/mm3 (4.4-11.0)
[2023-08-06 05:59] LABS: Anion Gap 10 (5-15); BUN 40 mg/dL (7-18); BUN/Creat Ratio 34.5 RATIO (10-20); Calcium,Total 9.5 mg/dL (8.5-10.1); Chloride 100 mmol/L (98-107); Creatinine, Serum 1.16 mg/dL (0.55-1.02); EST Glomerular Filtration Rate 47 mL/min (>60); Est Glom Filt Rate - Afr Amer 57 mL/min (>60); Estimated Creatinine Clearance 33.48 ml/min; Glucose 117 mg/dL (74-106); Potassium 4.7 mmol/L (3.5-5.1); Sodium Level 131 mmol/L (136-145)
[2023-08-06] MEDS: Carbidopa/Levodopa 25/100 Tablet PO ×3 (06:20→17:17)
[2023-08-06 07:10] VITALS: O2SAT 95
[2023-08-06] MEDS: Ensure Plus High Protein 120 ML LIQUID PO ×3 (09:36→17:17)
[2023-08-06] MEDS: Oxybutynin 5 MG Tablet PO (09:36)
[2023-08-06] MEDS: APIXABAN 2.5 MG TABLET (WCH) PO ×2 (09:37→22:32)
[2023-08-06] MEDS: Fluticasone/Salmeterol 232-14 Inhaler 1 PUFF INHALATION ×2 (09:37→22:31)
[2023-08-06] MEDS: Umeclidinium Bromide Inhaler 1 PUFF INHALATION (09:37)
[2023-08-06] MEDS: Senna/Docusate Sodium 1 Tablet 2 TABLET PO ×2 (09:37→22:32)
[2023-08-06] MEDS: amLODIPine 10 MG Tablet PO (09:37)
[2023-08-06] MEDS: Pantoprazole Sodium 40 MG Tablet PO (09:37)
[2023-08-06 09:38] VITALS: BP 119/52; PULSE 82
[2023-08-06] MEDS: Cholecalciferol (Vit D3) 125 MCG CAPSULE (5,000 UNITS) PO (09:38)
[2023-08-06] MEDS: Lisinopril 20 MG Tablet PO (09:38)
[2023-08-06] MEDS: Metoprolol(XL)Succ 50 MG Tablet PO (09:38)
[2023-08-06] MEDS: Tuberculin,Purif.prot.deriv. 50 TU/ML Vial 0.1 ML ID (11:29)
--- NOTE | 2023-08-06 11:32 | CASEMGMT ---
Social Work SW received call back from other dtr, Margarita, who manages pt's finances. Discussed DC options. Dtr states pt need to be independent with toileting tasks, specifically, to DC home alone. SW educated to EXECUTIVE COMMUNICATIONS MANAGER, [place] and SNF options with financial liability. Dtr inquired about Medicaid. SW questioned pt's finances for potential eligibility and pt could qualify once life insurance is turned over to the home. SW offered to make [facility] referral - dtr agreed. SW educated SNF would be the placement to accept GRACE. Dtr expressed understanding and agreed to receiving SNF lists printed and left in pt's room. Dtr appreciative of assistance. SW spoke with pt in room and provided printed list of SNFs that are in [facility] with quality and resource data via [facility]. SW sent email referral to Mona at [facility]. Mona to speak with pt and dtr when dtr is present this afternoon. SW will continue to follow. Angela Chan OPERATIONS LEADER RECONSTRUCTIVE SURGEON
[2023-08-06 16:00] VITALS: BP 119/52; PULSE 82; RESP 16; TEMP 36.2; O2SAT 97
[2023-08-06] MEDS: Pravastatin 20 MG Tablet PO (22:31)
[2023-08-06] MEDS: Montelukast 10 MG Tablet PO (22:31)
[2023-08-07] MEDS: Carbidopa/Levodopa 25/100 Tablet PO ×3 (06:43→16:44)
[2023-08-07] MEDS: Acetaminophen 500 MG Tablet 1000 MG PO ×3 (06:43→21:14)
[2023-08-07] MEDS: Levothyroxine 50 MCG Tablet PO (06:43)
[2023-08-07 07:42] VITALS: O2SAT 94
[2023-08-07 09:52] VITALS: BP 120/50; PULSE 77; RESP 17; TEMP 36.4; O2SAT 95
[2023-08-07] MEDS: Umeclidinium Bromide Inhaler 1 PUFF INHALATION (09:56)
[2023-08-07] MEDS: Oxybutynin 5 MG Tablet PO (09:56)
[2023-08-07] MEDS: APIXABAN 2.5 MG TABLET (WCH) PO ×2 (09:56→21:13)
[2023-08-07] MEDS: Fluticasone/Salmeterol 232-14 Inhaler 1 PUFF INHALATION ×2 (09:56→21:13)
[2023-08-07] MEDS: Pantoprazole Sodium 40 MG Tablet PO (09:57)
[2023-08-07] MEDS: amLODIPine 10 MG Tablet PO (09:57)
[2023-08-07 09:58] VITALS: PULSE 77
[2023-08-07] MEDS: Lisinopril 20 MG Tablet PO (09:58)
[2023-08-07] MEDS: Cholecalciferol (Vit D3) 125 MCG CAPSULE (5,000 UNITS) PO (09:58)
[2023-08-07] MEDS: Senna/Docusate Sodium 1 Tablet 2 TABLET PO ×2 (09:58→21:14)
[2023-08-07] MEDS: Metoprolol(XL)Succ 50 MG Tablet PO (09:58)
[2023-08-07] MEDS: Ensure Plus High Protein 120 ML LIQUID PO ×3 (10:03→16:44)
[2023-08-07] MEDS: oxyCODONE 5 MG Tablet PO ×2 (14:18→21:15)
[2023-08-07 20:25] VITALS: PULSE 76; RESP 14; O2SAT 95
[2023-08-07] MEDS: MELATONIN 10 MG TABLET PO (21:13)
[2023-08-07] MEDS: Pravastatin 20 MG Tablet PO (21:14)
[2023-08-07] MEDS: Montelukast 10 MG Tablet PO (21:14)
[2023-08-08] MEDS: Levothyroxine 50 MCG Tablet PO (06:03)
[2023-08-08] MEDS: Carbidopa/Levodopa 25/100 Tablet PO ×3 (06:03→17:14)
[2023-08-08] MEDS: Acetaminophen 500 MG Tablet 1000 MG PO ×3 (06:03→21:54)
[2023-08-08 06:06] VITALS: PULSE 78; RESP 16; O2SAT 94
[2023-08-08] MEDS: Ensure Plus High Protein 120 ML LIQUID PO ×3 (09:45→17:14)
[2023-08-08] MEDS: Oxybutynin 5 MG Tablet PO (09:47)
[2023-08-08] MEDS: Umeclidinium Bromide Inhaler 1 PUFF INHALATION (09:48)
[2023-08-08] MEDS: Fluticasone/Salmeterol 232-14 Inhaler 1 PUFF INHALATION ×2 (09:48→21:54)
[2023-08-08] MEDS: APIXABAN 2.5 MG TABLET (WCH) PO ×2 (09:48→21:54)
[2023-08-08] MEDS: amLODIPine 10 MG Tablet PO (09:51)
[2023-08-08] MEDS: Pantoprazole Sodium 40 MG Tablet PO (09:51)
[2023-08-08 09:53] VITALS: BP 111/52; PULSE 74
[2023-08-08] MEDS: Metoprolol(XL)Succ 50 MG Tablet PO (09:53)
[2023-08-08] MEDS: Lisinopril 20 MG Tablet PO (09:54)
[2023-08-08] MEDS: Cholecalciferol (Vit D3) 125 MCG CAPSULE (5,000 UNITS) PO (09:54)
[2023-08-08 10:03] VITALS: BP 111/52; PULSE 74; RESP 16; TEMP 35.7; O2SAT 96
[2023-08-08] MEDS: oxyCODONE 5 MG Tablet PO (20:10)
--- NOTE | 2023-08-08 21:17 | NURSING ---
Spoke w/ Dr. Hurst via phone. New order received and read back for an overnight oximetry as pt did desat for previous staff when pt was on room air w/ CPAP in use. Phone call placed to pulmonary services and spoke w/ Jo-Ann, to update.
[2023-08-08 21:37] VITALS: PULSE 70; O2SAT 96
[2023-08-08] MEDS: Montelukast 10 MG Tablet PO (21:54)
[2023-08-08] MEDS: Pravastatin 20 MG Tablet PO (21:54)
[2023-08-08] MEDS: MELATONIN 10 MG TABLET PO (21:54)
[2023-08-08] MEDS: Senna/Docusate Sodium 1 Tablet 2 TABLET PO (21:54)
[2023-08-09 05:50] LABS: Hematocrit 29.6 % (37-47); Hemoglobin 9.8 g/dL (12.0-15.0)
[2023-08-09] MEDS: Carbidopa/Levodopa 25/100 Tablet PO ×3 (05:55→16:19)
[2023-08-09] MEDS: Levothyroxine 50 MCG Tablet PO (05:55)
[2023-08-09] MEDS: Acetaminophen 500 MG Tablet 1000 MG PO ×3 (05:55→21:55)
[2023-08-09 08:48] VITALS: O2SAT 97
[2023-08-09 09:27] VITALS: O2SAT 96
--- NOTE | 2023-08-09 09:45 | RAD_ITS ---
INDICATION: Follow-up post surgery EXAMINATION/TECHNIQUE: X-RAY - XR Hip Unilateral with Pelvis when performed; 2-3 Views COMPARISON: No relevant prior comparison study available FINDINGS: Hardware from ORIF left proximal femur and femoral neck with overall anatomic alignment. Hip joints anatomically aligned with well maintained joint spaces bilaterally. No acute fracture. Degenerative changes of the lower lumbar spine. RAD/HIP, UNI W/ Pelvis 2-3 Views IMPRESSION: Status post ORIF proximal left femur. Electronically Signed: Lenny Christopher MD at 19:24 EDT ,
[2023-08-09] MEDS: Ensure Plus High Protein 120 ML LIQUID PO ×3 (09:56→16:19)
[2023-08-09] MEDS: Umeclidinium Bromide Inhaler 1 PUFF INHALATION (09:58)
[2023-08-09] MEDS: Oxybutynin 5 MG Tablet PO (09:59)
[2023-08-09] MEDS: Fluticasone/Salmeterol 232-14 Inhaler 1 PUFF INHALATION ×2 (09:59→21:54)
[2023-08-09] MEDS: APIXABAN 2.5 MG TABLET (WCH) PO ×2 (09:59→21:56)
[2023-08-09] MEDS: amLODIPine 10 MG Tablet PO (10:00)
[2023-08-09] MEDS: Senna/Docusate Sodium 1 Tablet 2 TABLET PO ×2 (10:01→21:55)
[2023-08-09] MEDS: Pantoprazole Sodium 40 MG Tablet PO (10:01)
[2023-08-09 10:02] VITALS: BP 126/59; PULSE 83
[2023-08-09] MEDS: Lisinopril 20 MG Tablet PO (10:02)
[2023-08-09] MEDS: Metoprolol(XL)Succ 50 MG Tablet PO (10:02)
[2023-08-09] MEDS: Cholecalciferol (Vit D3) 125 MCG CAPSULE (5,000 UNITS) PO (10:02)
[2023-08-09 10:08] VITALS: BP 126/59; PULSE 83; RESP 17; TEMP 36.7; O2SAT 94
--- NOTE | 2023-08-09 10:45 | NURSING ---
Addendum entered by Sangeetha Carter 08/09/23 11:42: [facility] called this nurse back and confirmed it is ok to take matthew out today and confirmed that she did get the XRAY results. She stated that Physician would not be into review them until Wednesday. Office staff stated that Physician originally requested follow-up appointment in 5/6 weeks but stated she would call back on Wednesday after xrays are reviewed to confirm which date he would like to schedule f/u. Original Note: Dr. Norton's Office was called this morning to update that Hip xray was done and sent by XRAY department to [facility], but no answer. This nurse left voicemail to update them that if they want an impression sent I would need a good fax number to send results. This nurse also requested that they return phone call to clarify staple removal order asking if it was ok to remove matthew now or does the Doctor want to review the xray results first. Awaiting return phone call at this time.
--- NOTE | 2023-08-09 12:40 | MDS.RN ---
Information for the mds was obtained from review of the clinical record, interview of resident, staff, and direct observation of resident's care.
[2023-08-09 13:49] VITALS: BP 119/55; PULSE 82; RESP 16; TEMP 36.3; O2SAT 96
--- NOTE | 2023-08-09 14:17 | NURSING ---
23 matthew removed from left hip per order, patient tolerated well
[2023-08-09] MEDS: Montelukast 10 MG Tablet PO (21:56)
[2023-08-09] MEDS: Pravastatin 20 MG Tablet PO (21:56)
[2023-08-09] MEDS: MELATONIN 10 MG TABLET PO (21:56)
[2023-08-09] MEDS: oxyCODONE 5 MG Tablet PO (23:02)
[2023-08-10] MEDS: oxyCODONE 5 MG Tablet PO ×2 (04:17→22:06)
[2023-08-10 06:03] LABS: Hematocrit 29.9 % (37-47)
[2023-08-10] MEDS: Levothyroxine 50 MCG Tablet PO (06:14)
[2023-08-10] MEDS: Acetaminophen 500 MG Tablet 1000 MG PO ×3 (06:14→22:03)
[2023-08-10] MEDS: Carbidopa/Levodopa 25/100 Tablet PO ×3 (06:14→17:36)
[2023-08-10 08:27] VITALS: O2SAT 95
[2023-08-10] MEDS: Senna/Docusate Sodium 1 Tablet 2 TABLET PO ×2 (08:44→22:02)
[2023-08-10] MEDS: APIXABAN 2.5 MG TABLET (WCH) PO ×2 (08:44→22:01)
[2023-08-10] MEDS: Pantoprazole Sodium 40 MG Tablet PO (08:45)
[2023-08-10] MEDS: Cholecalciferol (Vit D3) 125 MCG CAPSULE (5,000 UNITS) PO (08:45)
[2023-08-10] MEDS: Umeclidinium Bromide Inhaler 1 PUFF INHALATION (08:45)
[2023-08-10] MEDS: Oxybutynin 5 MG Tablet PO (08:45)
[2023-08-10] MEDS: Ensure Plus High Protein 120 ML LIQUID PO ×3 (08:45→17:36)
[2023-08-10] MEDS: Fluticasone/Salmeterol 232-14 Inhaler 1 PUFF INHALATION ×2 (08:45→22:01)
[2023-08-10 08:54] VITALS: BP 131/62; PULSE 96
[2023-08-10] MEDS: amLODIPine 10 MG Tablet PO (08:54)
[2023-08-10] MEDS: Metoprolol(XL)Succ 50 MG Tablet PO (08:54)
[2023-08-10] MEDS: Lisinopril 20 MG Tablet PO (08:54)
[2023-08-10 09:14] VITALS: BMI 34.1
[2023-08-10 09:30] VITALS: BP 131/62; PULSE 94; RESP 18; TEMP 36.1; O2SAT 96
[2023-08-10 10:00] VITALS: O2SAT 96
[2023-08-10] MEDS: Pravastatin 20 MG Tablet PO (22:01)
[2023-08-10] MEDS: MELATONIN 10 MG TABLET PO (22:02)
[2023-08-10] MEDS: Montelukast 10 MG Tablet PO (22:03)
[2023-08-11] MEDS: Carbidopa/Levodopa 25/100 Tablet PO ×3 (05:47→16:35)
[2023-08-11] MEDS: Acetaminophen 500 MG Tablet 1000 MG PO ×3 (05:47→22:28)
[2023-08-11] MEDS: Alendronate Sodium 70 MG Tablet PO (05:47)
[2023-08-11] MEDS: oxyCODONE 5 MG Tablet PO (05:47)
[2023-08-11] MEDS: Levothyroxine 50 MCG Tablet PO (05:51)
[2023-08-11] MEDS: Oxybutynin 5 MG Tablet PO (08:19)
[2023-08-11] MEDS: Ensure Plus High Protein 120 ML LIQUID PO ×3 (08:19→18:01)
[2023-08-11] MEDS: Senna/Docusate Sodium 1 Tablet 2 TABLET PO ×2 (08:20→22:27)
[2023-08-11] MEDS: Pantoprazole Sodium 40 MG Tablet PO (08:20)
[2023-08-11] MEDS: Fluticasone/Salmeterol 232-14 Inhaler 1 PUFF INHALATION ×2 (08:20→22:28)
[2023-08-11] MEDS: amLODIPine 10 MG Tablet PO (08:20)
[2023-08-11] MEDS: APIXABAN 2.5 MG TABLET (WCH) PO ×2 (08:20→22:28)
[2023-08-11] MEDS: Umeclidinium Bromide Inhaler 1 PUFF INHALATION (08:24)
[2023-08-11] MEDS: Cholecalciferol (Vit D3) 125 MCG CAPSULE (5,000 UNITS) PO (08:24)
[2023-08-11 08:25] VITALS: BP 106/46; PULSE 80
[2023-08-11] MEDS: Metoprolol(XL)Succ 50 MG Tablet PO (08:25)
[2023-08-11] MEDS: Lisinopril 20 MG Tablet PO (08:26)
--- NOTE | 2023-08-11 15:52 | CASEMGMT ---
Addendum entered by Angela Chan 08/13/23 10:30: Received Medicaid pending . Addendum entered by Angela Chan 08/12/23 10:11: [facility] and [facility] both do not have beds available. SW phoned dtr, Mckenzie, to inquire about other choices. Dtr unsure of facilities and will review with sister. SW educated to utilize Medicare.gov for further information. Dtr appreciative. SW will continue to follow. Original Note: Social Work Insurance issued LCD 08/13, DC 08/14. SW spoke with pt's dtr in this worker's office. Educated to DC date, appeal rights and inquired about DC plans. Dtr and pt have discussed that pt still needs assistance with her personal care and will not be able get that assistance at home. Dtr requesting SNF placement at [facility], [facility]. Pt would admit Medicaid pending. HITESH educated to dtr that [facility] does not accept [facility], but SW to refer to the other SNFs. Dtr agreed. SW will continue to follow for outcome. [facility] JOHN PAUL Mota
--- NOTE | 2023-08-11 15:53 | NURSING ---
Dr. Jimenez office calls and reports x-rays look good and that patient can be WBAT if not already and that she will need x-rays in a month. If patient is home in 1 month she can receive x-rays with Dr. Jimenez office.
[2023-08-11 16:00] VITALS: BP 106/46; PULSE 80; RESP 18; TEMP 36.1; O2SAT 93
--- NOTE | 2023-08-11 19:57 | DS.PCM_ITS ---
Providers Date of Admission: 07/29/23 Primary Care Physician: No Primary Care Phys Reason For Visit: LEFT HIP FRACTURE Diagnosis Discharge Diagnosis (1) Debility: Status: Acute Code(s): R53.81 - Other malaise (2) Fall: Status: Acute Code(s): W19.XXXA - Unspecified fall, initial encounter (3) Closed left hip fracture: Status: Acute Code(s): S72.002A - Fracture of unspecified part of neck of left femur, initial encounter for closed fracture (4) Gout: Status: Acute Code(s): M10.9 - Gout, unspecified (5) Urinary tract infection: Status: Acute Code(s): N39.0 - Urinary tract infection, site not specified (6) Acute kidney injury: Status: Acute Code(s): N17.9 - Acute kidney failure, unspecified (7) Hypertension: Status: Chronic Code(s): I10 - Essential (primary) hypertension (8) GERD (gastroesophageal reflux disease): Status: Acute Code(s): K21.9 - Gastro-esophageal reflux disease without esophagitis (9) Hypothyroidism: Status: Acute Code(s): E03.9 - Hypothyroidism, unspecified (10) Hyperlipidemia: Status: Acute Code(s): E78.5 - Hyperlipidemia, unspecified (11) Obstructive sleep apnea: Status: Acute Code(s): G47.33 - Obstructive sleep apnea (adult) (pediatric) (12) History of cervical cancer: Status: Acute Code(s): Z85.41 - Personal history of malignant neoplasm of cervix uteri (13) COPD (chronic obstructive pulmonary disease): Status: Chronic Code(s): J44.9 - Chronic obstructive pulmonary disease, unspecified Plan 83 year old female with below past medical history hospitalized for left hip fracture, underwent left hip FNS screw fixation 07/23/2023, postoperative course complicated by AJ, UTI, Gout, admitted to TCU with debility, here for rehabilitation, strengthening, prior to discharge home alone. * Debility - PT/OT. * Pain - Tylenol 1000mg q8, Oxycodone 5mg q4 prn pain (6-10). * Bowel - Miralax 17gm daily, senna/colace 2 tablets bid, Dulcolax 10mg daily prn. * Adult immunization - Administer pneumonia vaccine, covid vaccine, flu vaccine as appropriate. * DVT prophylaxis - Eliquis 2.5mg bid thru 08/27/2023. * Osteoporosis - Alendronate 70mg qweek. * Hypertension - Metoprolol succinate 50mg daily, Lisinopril 20mg daily, Amlodipine 10mg daily. * E. Coli UTI - Cefdinir 300mg q12 thru 08/02/2023. * Vitamin D deficiency - D3 125mcg daily. * COPD - Fluticasone/salmeterol 232-14 1 puff q12, Incruse 1 puff daily. * Hypothyroidism - Levothyroxine 50mcg daily. * Allergic rhinitis - Montelukast 10mg daily. * Overactive bladder - Oxybutynin 5mg daily. * GERD - Pantoprazole 40mg daily. * Dry eyes - Artificial tears 1gtt tid prn. * Hyperlipidemia - Pravastatin 20mg qhs. Medications at Discharge Home Medications acetaminophen 500 mg tablet 1,000 mg (2 x 500 mg) PO Q8 #0 tabs 08/11/23 alendronate 70 mg tablet 70 mg PO Q7D@0700 #0 tabs 08/11/23 amlodipine 10 mg tablet 10 mg PO DAILY #0 tabs 08/11/23 apixaban 5 mg tablet (Eliquis) 2.5 mg (1/2 x 5 mg) PO BID 11 days #11 tabs 08/11/23 carbidopa 25 mg-levodopa 100 mg tablet 1 tab PO TIDAC #0 tabs 08/11/23 cholecalciferol (vitamin D3) 125 mcg (5,000 unit) capsule 125 mcg PO DAILY #0 caps 08/11/23 fluticasone 232 mcg-salmeterol 14 mcg/actuation breath activated powdr 1 inh inhalation Q12 #0 ea 08/11/23 food supplemt, lactose-reduced 0.08 gram-1.5 kcal/mL oral liquid (Ensure Plus High Protein) 120 ml PO TIDCM #0 mL 08/11/23 levothyroxine 50 mcg tablet 50 mcg PO DAILY@0600 #0 tabs 08/11/23 lisinopril 20 mg tablet 20 mg PO DAILY #0 tabs 08/11/23 melatonin 10 mg sublingual tablet 10 mg PO QHS #0 tabs 08/11/23 metoprolol succinate 50 mg tablet,extended release 24 hr 50 mg PO DAILY #0 tabs 08/11/23 montelukast 10 mg tablet 10 mg PO HS #0 tabs 08/11/23 oxybutynin chloride 5 mg tablet 5 mg PO DAILY #0 tabs 08/11/23 oxycodone 5 mg tablet 5 mg PO Q4H PRN PRN Pain Score 6-10 3 days #18 tabs 08/11/23 pantoprazole 40 mg tablet,delayed release 40 mg PO DAILY #0 tabs 08/11/23 pravastatin 20 mg tablet 20 mg PO QHS #0 tabs 08/11/23 sennosides 8.6 mg-docusate sodium 50 mg tablet (Stool Softener-Stimulant Laxative) 2 tab PO BID #0 tabs 08/11/23 umeclidinium 62.5 mcg/actuation blister powder for inhalation (Incruse Ellipta) 62.5 mcg inhalation DAILY #0 ea 08/11/23 Hospital Course Operations - (See below.) Procedures None Summary of Care Provided Minutes Spent on Discharge: 35 Hospital Course: 83 year old female with below past medical history hospitalized for left hip fracture, underwent left hip FNS screw fixation 07/23/2023, postoperative course complicated by AJ, UTI, Gout, admitted to TCU with debility, here for rehabilitation, strengthening, prior to discharge home alone. Eliquis 2.5mg bid DVT prophylaxis thru 08/27/2023. Discharge to [facility] versus [facility], Medicaid pending, intermediate, part b therapies. Physical Exam Const alert General Appearance: cooperative HEENT normocephalic Eyes PERRL and EOMs intact bilaterally Neck supple, no JVD and no carotid bruits Resp normal respiratory effort, normal air movement and clear to auscultation bilaterally Cardio regular rate and regular rhythm GI normal to inspection, nondistended, normoactive bowel sounds, non-tender and non-distended Extremity normal capillary refill General Extremity: Negative for edema Skin no rashes or lesions noted General Skin Exam: no breakdown Psych affect normal Appearance: appropriate Weight / BMI Weight Weight: 79.288 kg Body Mass Index (BMI) 34.1 ABG / Lab / Microbiology Data 08/10/23 05:21 08/06/23 05:14 D/C Instructions Discharge Diet: No restrictions Discharge Activity: Return to Normal Activity, May Shower and Use Walker Weight Bearing Status: Weight bearing as tolerated Call your doctor if you observe: Fever of 101 or Higher, Inability to urinate, Inability to have a bowel movement, Shortness of breath, Dizziness, Fainting spells, Swelling in the ankles, Chest pain and Uncontrolled pain Additional Instructions: Discharge to [facility] versus [place], Medicaid pending, intermediate, part b therapies. Please Follow Up With: Liz MOURA When: As scheduled. Meaningful Use Info Meaningful Use Diagnoses (Choose all that apply): None applicable Discharge Plan Admission Admit Date/Time: 07/29/23 21:20 Primary Reason for Your Visit: Debility. Attending Provider: Ghanshyam Hurst Chi Primary Care Provider: Care Physician,No Primary Instructions Additional Instructions / Restrictions: Discharge to [facility] versus [place], Medicaid pending, intermediate, part b therapies. Discharge Orders/Prescriptions Prescriptions: New acetaminophen 500 mg Tablet 1,000 mg PO Q8 Qty: 0 0RF alendronate 70 mg Tablet 70 mg PO Q7D@0700 Qty: 0 0RF amlodipine 10 mg Tablet 10 mg PO DAILY Qty: 0 0RF carbidopa-levodopa 25-100 mg Tablet 1 tab PO TIDAC Qty: 0 0RF cholecalciferol (vitamin D3) 125 mcg (5,000 unit) Capsule 125 mcg PO DAILY Qty: 0 0RF Eliquis 5 mg Tablet 2.5 mg PO BID 11 Days Qty: 11 0RF metoprolol succinate 50 mg Tablet Extended Release 24 Hr 50 mg PO DAILY Qty: 0 0RF lisinopril 20 mg Tablet 20 mg PO DAILY Qty: 0 0RF sennosides-docusate sodium [Stool Softener-Stimulant Laxat] 8.6-50 mg Tablet 2 tab PO BID Qty: 0 0RF levothyroxine 50 mcg Tablet 50 mcg PO DAILY@0600 Qty: 0 0RF pantoprazole 40 mg Tablet,Delayed Release (Dr/Ec) 40 mg PO DAILY Qty: 0 0RF montelukast 10 mg Tablet 10 mg PO HS Qty: 0 0RF pravastatin 20 mg Tablet 20 mg PO QHS Qty: 0 0RF oxybutynin chloride 5 mg Tablet 5 mg PO DAILY Qty: 0 0RF melatonin 10 mg Tablet, Sublingual 10 mg PO QHS Qty: 0 0RF Ensure Plus High Protein 0.08 gram-1.5 kcal/mL Liquid 120 ml PO TIDCM Qty: 0 0RF fluticasone propion-salmeterol 232-14 mcg/actuation Aerosol Powdr Breath Activated 1 inh inhalation Q12 Qty: 0 0RF oxycodone 5 mg Tablet 5 mg PO Q4H PRN PRN (Reason: Pain Score 6-10) 3 Days Qty: 18 0RF Incruse Ellipta 62.5 mcg/actuation Blister With Device 62.5 mcg inhalation DAILY Qty: 0 0RF Referrals / Follow Up: Care Physician,No Primary [Primary Care Provider] - Disposition Disposition (needs filled in before D/C Order can be placed): NonSkilled NH/Intermed Care
--- NOTE | 2023-08-11 20:04 | PCM.TXEXTCAR ---
Diet Diet Order/Speech Therapy: 07/29/23 23:49 Diet: Cardiac - Heart Healthy Food consistency:: Regular Liquid Consistency:: Regular/Thin Is pt able to select menu?: No Diet Comments: add extra sauce/gravy for meals; requests coffee w/ every meal Routine Orders/Code Status Code Status: Full Code Wound(s) left hip: Wound Type: Surgical Incision Dressing Change: Dry Sterile Dressing Therapies Weight Bearing: Weight bearing as tolerated Extremity Affected:: Bilateral Lower Physical Therapy: Eval and Treat Occupational Therapy: Eval and Treat Speech Therapy: Eval and Treat Problem/Diagnosis (1) Debility: Status: Acute Code(s): R53.81 - Other malaise (2) Fall: Status: Acute Code(s): W19.XXXA - Unspecified fall, initial encounter (3) Closed left hip fracture: Status: Acute Code(s): S72.002A - Fracture of unspecified part of neck of left femur, initial encounter for closed fracture (4) Gout: Status: Acute Code(s): M10.9 - Gout, unspecified (5) Urinary tract infection: Status: Acute Code(s): N39.0 - Urinary tract infection, site not specified (6) Acute kidney injury: Status: Acute Code(s): N17.9 - Acute kidney failure, unspecified (7) Hypertension: Status: Chronic Code(s): I10 - Essential (primary) hypertension (8) GERD (gastroesophageal reflux disease): Status: Acute Code(s): K21.9 - Gastro-esophageal reflux disease without esophagitis (9) Hypothyroidism: Status: Acute Code(s): E03.9 - Hypothyroidism, unspecified (10) Hyperlipidemia: Status: Acute Code(s): E78.5 - Hyperlipidemia, unspecified (11) Obstructive sleep apnea: Status: Acute Code(s): G47.33 - Obstructive sleep apnea (adult) (pediatric) (12) History of cervical cancer: Status: Acute Code(s): Z85.41 - Personal history of malignant neoplasm of cervix uteri (13) COPD (chronic obstructive pulmonary disease): Status: Chronic Code(s): J44.9 - Chronic obstructive pulmonary disease, unspecified Plan 83 year old female with below past medical history hospitalized for left hip fracture, underwent left hip FNS screw fixation 07/23/2023, postoperative course complicated by AJ, UTI, Gout, admitted to TCU with debility, here for rehabilitation, strengthening, prior to discharge home alone. Debility - PT/OT. Pain - Tylenol 1000mg q8, Oxycodone 5mg q4 prn pain (6-10). Bowel - Miralax 17gm daily, senna/colace 2 tablets bid, Dulcolax 10mg daily prn. Adult immunization - Administer pneumonia vaccine, covid vaccine, flu vaccine as appropriate. DVT prophylaxis - Eliquis 2.5mg bid thru 08/27/2023. Osteoporosis - Alendronate 70mg qweek. Hypertension - Metoprolol succinate 50mg daily, Lisinopril 20mg daily, Amlodipine 10mg daily. E. Coli UTI - Cefdinir 300mg q12 thru 08/02/2023. Vitamin D deficiency - D3 125mcg daily. COPD - Fluticasone/salmeterol 232-14 1 puff q12, Incruse 1 puff daily. Hypothyroidism - Levothyroxine 50mcg daily. Allergic rhinitis - Montelukast 10mg daily. Overactive bladder - Oxybutynin 5mg daily. GERD - Pantoprazole 40mg daily. Dry eyes - Artificial tears 1gtt tid prn. Hyperlipidemia - Pravastatin 20mg qhs. Allergies/Procedures Done in Hospital Allergies codeine Allergy (Unknown, Verified 07/29/23 22:46) Nausea/Vom/Diarrhea Procedures: None Type of Care/Length of Stay Estimated LOS: Convalescent Care Less Than 30 days Type of Care Needed: Intermediate Rehab Potential: Good Prognosis: Good Additional Orders/Day of Discharge Additional Orders: part B therapies Day of Discharge: 08/15/23 Dietary and Speech Recommendations Dietitian Recommendations/Changes: Continue Cardiac as ordered Continue Ensure Plus High Protein 120mL 3x/day with medpass to help increase oral intakes. Consider d/t EPHP at time of follow up pending continued po intake/wt status. Will continue to follow and modify nutrition interventions as needed. Speech Linguistic Eval Summary: Pt. reports sudden onset of dysarthria ~1 year ago w/ unknown etiology. Pt. has neurology appointment tomorrow. Oral Mech - Slowed coordination, generalized tongue weakness but lingual ROM is WNL. Intelligibility - Pt. is 100% intelligible in conversation and structured language tasks, however very slowed articulation. Respiration - DDK rates completed. /p^/ - .8 syllables per second (NORM:4.1s-7.6s), /t^/ 1 syllable per second (NORM: 3.9s-7.2s), /k^/ 1 syllable per second (NORM: 3.2s-6.9s), /p^t^k^/ .6 syllables per second (NORM: 4.3s-6.9s). Speech Rate - In reading sample (RAINBOW PASSAGE) - pt. able to read 74 words/120s = .61s (NORM: 4.5s-4.7s). Phonation - Soft vocal quality w/ decreased breath support. Sustained /ah/ 1.15s average of 3 trials (NORM: 14.3-40.4s) Sustained /S/ for S/Z ratio: 9.41s average of 3 trials. Unable to produce /z/ even at the word level (buzz). Unable to complete pitch glide (high to low/ low to high). [place] - Unable to differentiate between different stress patterns (I am hungry, I AM hungry, I am HUNGRY) despite ST model. Pt. presents w/ mild/moderate dysarthria characterized by poor breath support, decreased phonation abilities and slowed articulation. Follow Up Care Please Follow Up With: Liz JIMENEZ When: 6 weeks from surgery Please Follow Up With: Dov OBRIEN PCP Please Follow Up With: Phi INFANTE Please Follow Up With: Marty Orellana CNP When: 6wks Please Follow Up With: Dr. Jimenez Discharge Plan Admission Admit Date/Time: 07/29/23 21:20 Primary Reason for Your Visit: Debility. Attending Provider: Ghanshyam Hurst Chi Primary Care Provider: Care Physician,No Primary Instructions Additional Instructions / Restrictions: Discharge to [facility] versus [facility], Medicaid pending, intermediate, part b therapies. Discharge Orders/Prescriptions Prescriptions: New acetaminophen 500 mg Tablet 1,000 mg PO Q8 Qty: 0 0RF alendronate 70 mg Tablet 70 mg PO Q7D@0700 Qty: 0 0RF amlodipine 10 mg Tablet 10 mg PO DAILY Qty: 0 0RF carbidopa-levodopa 25-100 mg Tablet 1 tab PO TIDAC Qty: 0 0RF cholecalciferol (vitamin D3) 125 mcg (5,000 unit) Capsule 125 mcg PO DAILY Qty: 0 0RF Eliquis 5 mg Tablet 2.5 mg PO BID 11 Days Qty: 11 0RF metoprolol succinate 50 mg Tablet Extended Release 24 Hr 50 mg PO DAILY Qty: 0 0RF lisinopril 20 mg Tablet 20 mg PO DAILY Qty: 0 0RF sennosides-docusate sodium [Stool Softener-Stimulant Laxat] 8.6-50 mg Tablet 2 tab PO BID Qty: 0 0RF levothyroxine 50 mcg Tablet 50 mcg PO DAILY@0600 Qty: 0 0RF pantoprazole 40 mg Tablet,Delayed Release (Dr/Ec) 40 mg PO DAILY Qty: 0 0RF montelukast 10 mg Tablet 10 mg PO HS Qty: 0 0RF pravastatin 20 mg Tablet 20 mg PO QHS Qty: 0 0RF oxybutynin chloride 5 mg Tablet 5 mg PO DAILY Qty: 0 0RF melatonin 10 mg Tablet, Sublingual 10 mg PO QHS Qty: 0 0RF Ensure Plus High Protein 0.08 gram-1.5 kcal/mL Liquid 120 ml PO TIDCM Qty: 0 0RF fluticasone propion-salmeterol 232-14 mcg/actuation Aerosol Powdr Breath Activated 1 inh inhalation Q12 Qty: 0 0RF oxycodone 5 mg Tablet 5 mg PO Q4H PRN PRN (Reason: Pain Score 6-10) 3 Days Qty: 18 0RF Incruse Ellipta 62.5 mcg/actuation Blister With Device 62.5 mcg inhalation DAILY Qty: 0 0RF Referrals / Follow Up: Care Physician,No Primary [Primary Care Provider] - Disposition Disposition (needs filled in before D/C Order can be placed): NonSkilled NH/Intermed Care
[2023-08-11] MEDS: Pravastatin 20 MG Tablet PO (22:28)
[2023-08-11] MEDS: Montelukast 10 MG Tablet PO (22:28)
[2023-08-11] MEDS: MELATONIN 10 MG TABLET PO (22:28)
[2023-08-11 23:00] VITALS: PULSE 77; RESP 16; O2SAT 95
[2023-08-12] MEDS: oxyCODONE 5 MG Tablet PO (02:09)
--- NOTE | 2023-08-12 04:39 | NURSING ---
Addendum entered by Juan Carlos Espinoza 08/12/23 06:27: patient reports muscle spasms at times, muscle tension all over, written communication left for Dr. Hurst, patient requesting muscle relaxant Original Note: C/o insomnia and feeling restless at HS despite melatonin and non-pharmacologic interventions. Written communication left for Dr. Hurst, patient requesting stronger medication to promote sleep and help with restlessness.
[2023-08-12 04:50] VITALS: RESP 14
[2023-08-12] MEDS: Levothyroxine 50 MCG Tablet PO (06:14)
[2023-08-12] MEDS: Acetaminophen 500 MG Tablet 1000 MG PO ×3 (06:14→21:04)
[2023-08-12] MEDS: Carbidopa/Levodopa 25/100 Tablet PO ×3 (06:14→17:56)
[2023-08-12] MEDS: Umeclidinium Bromide Inhaler 1 PUFF INHALATION (08:56)
[2023-08-12] MEDS: Fluticasone/Salmeterol 232-14 Inhaler 1 PUFF INHALATION ×2 (08:56→21:03)
[2023-08-12 08:58] VITALS: PULSE 80
[2023-08-12] MEDS: Cholecalciferol (Vit D3) 125 MCG CAPSULE (5,000 UNITS) PO (08:58)
[2023-08-12] MEDS: Metoprolol(XL)Succ 50 MG Tablet PO (08:58)
[2023-08-12] MEDS: Pantoprazole Sodium 40 MG Tablet PO (08:58)
[2023-08-12] MEDS: Ensure Plus High Protein 120 ML LIQUID PO ×3 (08:58→17:56)
[2023-08-12] MEDS: amLODIPine 10 MG Tablet PO (08:58)
[2023-08-12] MEDS: APIXABAN 2.5 MG TABLET (WCH) PO ×2 (08:58→21:03)
[2023-08-12] MEDS: Oxybutynin 5 MG Tablet PO (08:58)
[2023-08-12] MEDS: Senna/Docusate Sodium 1 Tablet 2 TABLET PO ×2 (08:58→21:04)
[2023-08-12] MEDS: Lisinopril 20 MG Tablet PO (08:58)
[2023-08-12] MEDS: Polyethylene Glycol 3350 17 GM PACKET PO (08:59)
[2023-08-12 10:45] VITALS: BP 123/49; PULSE 83; RESP 18; TEMP 35.9; O2SAT 99
[2023-08-12] MEDS: Baclofen 10 MG Tablet PO (21:03)
[2023-08-12] MEDS: Pravastatin 20 MG Tablet PO (21:04)
[2023-08-12] MEDS: MELATONIN 10 MG TABLET PO (21:04)
[2023-08-12] MEDS: Montelukast 10 MG Tablet PO (21:04)
[2023-08-13] MEDS: oxyCODONE 5 MG Tablet PO ×2 (05:39→14:49)
[2023-08-13] MEDS: Acetaminophen 500 MG Tablet 1000 MG PO ×3 (05:40→21:51)
[2023-08-13] MEDS: Levothyroxine 50 MCG Tablet PO (05:40)
[2023-08-13] MEDS: Carbidopa/Levodopa 25/100 Tablet PO ×3 (05:42→17:04)
[2023-08-13 05:57] LABS: Absolute Lymphocyte Count 0.46 X10^3/uL (0.83-4.51); Absolute Neutrophil Count 0.8 X10^3/uL (2.0-7.7); Basophil# 0.03 X10^3/uL; Basophil% 1.6 % (0-1); Eosinophil# 0.09 X10^3/uL; Eosinophils% 4.8 % (0-5); Hematocrit 31.6 % (37-47); Hemoglobin 10.2 g/dL (12.0-15.0); Lymphocyte # 0.46 X10^3/ul (0.83-4.51); Lymphocyte % 24.5 % (19-41); Mean Corp Hgb Conc 32.3 g/dL (32-36); Mean Corpuscular Hgb 26.8 pg (27.0-32.0); Mean Corpuscular Volume 82.9 fL (81-99); Mean Platelet Vol. 8.6 fl (6.2-12.0); Monocyte# 0.45 X10^3/uL; Monocyte% 23.9 % (0-10); NRBC Flagged by Analyzer 0 % (0-5); Neutrophil # 0.84 X10^3/uL (2.7-7.7); Neutrophil % 44.7 % (47-70); POSITIVE DIFFERENTIAL YES; Platelet Count 249 K/mm3 (150-450); RBC Distribution Width CV 14.8 % (11.6-14.6); RBC Distribution Width SD 44.4 fl (35.1-43.9); Red Blood Count 3.81 M/mm3 (4.2-5.4); White Blood Count 1.9 K/mm3 (4.4-11.0)
[2023-08-13 06:12] LABS: Differential Indicated SCAN CRITERIA MET
[2023-08-13 06:34] LABS: Anion Gap 8 (5-15); BUN 44 mg/dL (7-18); BUN/Creat Ratio 35.2 RATIO (10-20); Calcium,Total 9.2 mg/dL (8.5-10.1); Chloride 99 mmol/L (98-107); Creatinine, Serum 1.25 mg/dL (0.55-1.02); EST Glomerular Filtration Rate 43 mL/min (>60); Est Glom Filt Rate - Afr Amer 53 mL/min (>60); Estimated Creatinine Clearance 31.21 ml/min; Glucose 116 mg/dL (74-106); Potassium 4.7 mmol/L (3.5-5.1); Sodium Level 131 mmol/L (136-145)
[2023-08-13 08:58] VITALS: BP 129/50; PULSE 76; RESP 18; TEMP 36.3; O2SAT 95
[2023-08-13] MEDS: Umeclidinium Bromide Inhaler 1 PUFF INHALATION (09:00)
[2023-08-13] MEDS: Fluticasone/Salmeterol 232-14 Inhaler 1 PUFF INHALATION ×2 (09:00→21:52)
[2023-08-13] MEDS: Ensure Plus High Protein 120 ML LIQUID PO ×3 (09:00→17:03)
[2023-08-13] MEDS: Oxybutynin 5 MG Tablet PO (09:01)
[2023-08-13] MEDS: APIXABAN 2.5 MG TABLET (WCH) PO ×2 (09:01→21:52)
[2023-08-13] MEDS: Polyethylene Glycol 3350 17 GM PACKET PO (09:01)
[2023-08-13] MEDS: Senna/Docusate Sodium 1 Tablet 2 TABLET PO ×2 (09:01→21:52)
[2023-08-13] MEDS: amLODIPine 10 MG Tablet PO (09:01)
[2023-08-13 09:02] VITALS: PULSE 76
[2023-08-13] MEDS: Cholecalciferol (Vit D3) 125 MCG CAPSULE (5,000 UNITS) PO (09:02)
[2023-08-13] MEDS: Pantoprazole Sodium 40 MG Tablet PO (09:02)
[2023-08-13] MEDS: Lisinopril 20 MG Tablet PO (09:02)
[2023-08-13] MEDS: Metoprolol(XL)Succ 50 MG Tablet PO (09:02)
--- NOTE | 2023-08-13 09:57 | MDS.RN ---
MDS pain interview completed.
[2023-08-13 10:36] VITALS: O2SAT 94
--- NOTE | 2023-08-13 10:39 | CASEMGMT ---
Addendum entered by Angela Chan 08/13/23 17:07: PASRR completed. Addendum entered by Angela Chan 08/13/23 14:29: [facility] can accept. Still no response back from [facility]. SW phoned dtr, Margarita, and [facility] is FOC. Family can transport. SW updated [facility], sent DC orders. Plan: DC 08/15 to [facility], intermediate, medicaid pending Original Note: Social Work BIMS () and PHQ-2 () completed for MDS assessment. Dtr also present and had further questions about pt's DC. SW answered questions and updated her that a MCDP# was received and given to [facility]. If [facility] can accept financially, pt can admit there clinically. Dtr also stated her sister was interested in appealing the DC now. SW reexplained and provided appeal information. Dtr to notify this worker once completed. SW will continue to follow. JOHN PAUL MotaW
--- NOTE | 2023-08-13 15:09 | NURSING ---
pt c/o LT knee pain, states its bone on bone, months ago pt had gel implant. polar care applied and PRN oxyir given. pt resting in recliner chair, legs elevated. call light in reach.
--- NOTE | 2023-08-13 16:06 | NURSING ---
oxyir effective, pt sleeping in chair, did not awaken.
[2023-08-13 20:40] VITALS: PULSE 75; RESP 16; O2SAT 96
[2023-08-13] MEDS: Montelukast 10 MG Tablet PO (21:51)
[2023-08-13] MEDS: MELATONIN 10 MG TABLET PO (21:52)
[2023-08-13] MEDS: Pravastatin 20 MG Tablet PO (21:52)
[2023-08-13] MEDS: Baclofen 10 MG Tablet PO (21:52)
[2023-08-14] MEDS: oxyCODONE 5 MG Tablet PO ×3 (05:38→18:00)
[2023-08-14] MEDS: Levothyroxine 50 MCG Tablet PO (05:38)
[2023-08-14] MEDS: Acetaminophen 500 MG Tablet 1000 MG PO ×3 (05:38→21:47)
[2023-08-14] MEDS: Carbidopa/Levodopa 25/100 Tablet PO ×3 (05:38→17:13)
[2023-08-14 05:42] VITALS: PULSE 80; RESP 18; O2SAT 97
[2023-08-14 09:45] VITALS: BP 133/51; PULSE 78; RESP 16; TEMP 36.4; O2SAT 95
[2023-08-14] MEDS: Ensure Plus High Protein 120 ML LIQUID PO ×3 (09:46→17:12)
[2023-08-14] MEDS: Umeclidinium Bromide Inhaler 1 PUFF INHALATION (09:47)
[2023-08-14] MEDS: Fluticasone/Salmeterol 232-14 Inhaler 1 PUFF INHALATION ×2 (09:47→21:45)
[2023-08-14 09:50] VITALS: PULSE 78
[2023-08-14] MEDS: Metoprolol(XL)Succ 50 MG Tablet PO (09:50)
[2023-08-14] MEDS: Polyethylene Glycol 3350 17 GM PACKET PO (09:50)
[2023-08-14] MEDS: Cholecalciferol (Vit D3) 125 MCG CAPSULE (5,000 UNITS) PO (09:51)
[2023-08-14] MEDS: Senna/Docusate Sodium 1 Tablet 2 TABLET PO ×2 (09:51→21:47)
[2023-08-14] MEDS: amLODIPine 10 MG Tablet PO (09:51)
[2023-08-14] MEDS: Lisinopril 20 MG Tablet PO (09:51)
[2023-08-14] MEDS: Pantoprazole Sodium 40 MG Tablet PO (09:51)
[2023-08-14] MEDS: APIXABAN 2.5 MG TABLET (WCH) PO ×2 (09:51→21:46)
[2023-08-14] MEDS: Oxybutynin 5 MG Tablet PO (09:51)
[2023-08-14] MEDS: Arthritis Pain Compound 60 CLICK TUBE TOPICAL ×2 (12:59→21:46)
[2023-08-14] MEDS: Baclofen 10 MG Tablet PO (21:46)
[2023-08-14] MEDS: Pravastatin 20 MG Tablet PO (21:47)
[2023-08-14] MEDS: Montelukast 10 MG Tablet PO (21:48)
[2023-08-14] MEDS: MELATONIN 10 MG TABLET PO (21:48)
[2023-08-15] MEDS: Levothyroxine 50 MCG Tablet PO (05:36)
[2023-08-15] MEDS: Acetaminophen 500 MG Tablet 1000 MG PO ×2 (05:37→12:45)
[2023-08-15] MEDS: Carbidopa/Levodopa 25/100 Tablet PO ×2 (05:37→11:32)
[2023-08-15 09:40] VITALS: BP 118/54; PULSE 77; RESP 17; TEMP 36.6; O2SAT 95
[2023-08-15] MEDS: APIXABAN 2.5 MG TABLET (WCH) PO (09:56)
[2023-08-15] MEDS: Umeclidinium Bromide Inhaler 1 PUFF INHALATION (09:56)
[2023-08-15] MEDS: Fluticasone/Salmeterol 232-14 Inhaler 1 PUFF INHALATION (09:56)
[2023-08-15] MEDS: Arthritis Pain Compound 60 CLICK TUBE TOPICAL (09:56)
[2023-08-15] MEDS: Oxybutynin 5 MG Tablet PO (09:56)
[2023-08-15] MEDS: Pantoprazole Sodium 40 MG Tablet PO (09:57)
[2023-08-15] MEDS: amLODIPine 10 MG Tablet PO (09:57)
[2023-08-15 09:58] VITALS: PULSE 77
[2023-08-15] MEDS: Senna/Docusate Sodium 1 Tablet 2 TABLET PO (09:58)
[2023-08-15] MEDS: Cholecalciferol (Vit D3) 125 MCG CAPSULE (5,000 UNITS) PO (09:58)
[2023-08-15] MEDS: Metoprolol(XL)Succ 50 MG Tablet PO (09:58)
[2023-08-15] MEDS: Lisinopril 20 MG Tablet PO (09:59)
[2023-08-15] MEDS: oxyCODONE 5 MG Tablet PO (10:02)
[2023-08-15] MEDS: Ensure Plus High Protein 120 ML LIQUID PO ×2 (10:03→12:45)
--- NOTE | 2023-08-15 12:42 | NURSING ---
Report call to nurse at [facility]. Patient going to [facility] [address], bed 1. Family updated.
[2023-08-16 09:44] LABS: Pathologist Review Reviewed
== END 2023-08-15 13:00 | disposition intermediate care facility (04) | DRG 560 ==
PROVIDERS: Admitting Provider Family Medicine Geriatric Medicine; Visit Provider Family Medicine Geriatric Medicine
DX: S72.002D Fracture of unspecified part of neck of left femur, subsequent encounter for closed fracture with routine healing (principal); N39.0 Urinary tract infection, site not specified; E03.9 Hypothyroidism, unspecified; J44.9 Chronic obstructive pulmonary disease, unspecified; I10 Essential (primary) hypertension; E78.5 Hyperlipidemia, unspecified; G47.33 Obstructive sleep apnea (adult) (pediatric); K21.9 Gastro-esophageal reflux disease without esophagitis; J30.9 Allergic rhinitis, unspecified; E55.9 Vitamin D deficiency, unspecified; W19.XXXD Unspecified fall, subsequent encounter; M81.0 Age-related osteoporosis without current pathological fracture; Z87.891 Personal history of nicotine dependence; B96.20 Unspecified Escherichia coli [E. coli] as the cause of diseases classified elsewhere; N32.81 Overactive bladder; Z79.899 Other long term (current) drug therapy
CPT/HCPCS: 36415; 73502; 80048; 80061; 82306; 84443; 85014; 85018; 85025; 92507; 92523; 92526; 92610; 94762; 97110; 97116; 97150; 97162; 97166; 97530; 97535; 97802

== ENCOUNTER → 2023-08-16 | Outpatient (REF) | payer MEDICARE, MEDICAID, SELFPAY ==
[2023-08-16 09:14] LABS: Hematocrit 29.3 % (37-47); Hemoglobin 9.4 g/dL (12.0-15.0); Mean Corp Hgb Conc 32.1 g/dL (32-36); Mean Corpuscular Hgb 26.3 pg (27.0-32.0); Mean Corpuscular Volume 82.1 fL (81-99); Mean Platelet Vol. 9.2 fl (6.2-12.0); Platelet Count 238 K/mm3 (150-450); RBC Distribution Width CV 14.6 % (11.6-14.6); RBC Distribution Width SD 43.4 fl (35.1-43.9); Red Blood Count 3.57 M/mm3 (4.2-5.4); White Blood Count 1.7 K/mm3 (4.4-11.0)
[2023-08-16 09:58] LABS: Anion Gap 7 (5-15); BUN 33 mg/dL (7-18); BUN/Creat Ratio 31.4 RATIO (10-20); Calcium,Total 9.5 mg/dL (8.5-10.1); Chloride 98 mmol/L (98-107); Creatinine, Serum 1.05 mg/dL (0.55-1.02); EST Glomerular Filtration Rate 53 mL/min (>60); Est Glom Filt Rate - Afr Amer 64 mL/min (>60); Glucose 107 mg/dL (74-106); Potassium 4.8 mmol/L (3.5-5.1); Sodium Level 126 mmol/L (136-145)
== END ==
LOC: OLS.SW 05:00
PROVIDERS: Visit Provider Family Medicine
DX: J44.9 Chronic obstructive pulmonary disease, unspecified (principal); I10 Essential (primary) hypertension; E78.5 Hyperlipidemia, unspecified; R53.81 Other malaise; S72.002A Fracture of unspecified part of neck of left femur, initial encounter for closed fracture
CPT/HCPCS: 36415; 80048; 85027

== ENCOUNTER → 2023-08-19 | Outpatient (REF) | payer MEDICARE, SELFPAY ==
[2023-08-19 08:41] LABS: Vitamin D,25 Hydroxy 47.6 ng/mL
[2023-08-19 09:14] LABS: T4 Free Direct 1.53 ng/dL (0.76-1.46); Thyroid Stim Hormone (TSH) 1.35 uIU/mL (0.358-3.74)
== END ==
LOC: OLS.SW 05:00
PROVIDERS: Visit Provider Family Medicine
DX: N17.9 Acute kidney failure, unspecified (principal); E55.9 Vitamin D deficiency, unspecified; E03.9 Hypothyroidism, unspecified
CPT/HCPCS: 36415; 82306; 84439; 84443